=== PATIENT | female | born 1940 | race Caucasian/White ===

== ENCOUNTER 2020-01-30 16:37 | Inpatient (IN) | payer OTHER ==
[~2020-01-30] VITALS: Ht 144.8 cm; Wt 47.6 kg
[2020-01-30] MEDS ORDERED: LIPITOR20 MG (16:45)
[2020-01-30] MEDS ORDERED: LEVOXYL50 MCG (16:45)
== END 2020-02-05 14:04 | disposition home health service (06) | DRG 563 ==
LOC: ER 16:37 → SURG 01-31 17:29 → SURH 02-04 15:26
PROVIDERS: ADMIT Internal Medicine; ATTEND Internal Medicine
PROC: 30233N1 Transfusion of Nonautologous Red Blood Cells into Peripheral Vein, Percutaneous Approach (ICD-10-PCS; principal; 2020-02-02)
DX: S82.141A Displaced bicondylar fracture of right tibia, initial encounter for closed fracture (principal); F23 Brief psychotic disorder; I10 Essential (primary) hypertension; E03.9 Hypothyroidism, unspecified; S80.821A Blister (nonthermal), right lower leg, initial encounter; Z20.828 Contact with and (suspected) exposure to other viral communicable diseases; M81.8 Other osteoporosis without current pathological fracture; W18.39XA Other fall on same level, initial encounter; Z53.8 Procedure and treatment not carried out for other reasons

== ENCOUNTER 2020-03-16 08:51 | Outpatient (CLI) | payer OTHER ==
[~2020-03-16 08:51] MED LIST: LEVOXYL50 MCG; LIPITOR20 MG
== END 2020-03-16 09:30 | disposition home or self-care (01) ==
LOC: WOUND MED 08:51
PROVIDERS: ATTEND Specialist
DX: L89.512 Pressure ulcer of right ankle, stage 2 (principal)
CPT/HCPCS: 11042; G0463; A4554; A4930; A6216

== ENCOUNTER 2020-04-08 08:14 | Outpatient (CLI) | payer OTHER | END 2020-04-08 09:00 | disposition home or self-care (01) | LOC: WOUND MED 08:14 | PROVIDERS: ATTEND Specialist | DX: L89.512 Pressure ulcer of right ankle, stage 2 (principal) | CPT/HCPCS: 11042; A4554; A4930; A6212; A6216; A6219 ==

== ENCOUNTER 2020-05-31 08:58 | Outpatient (CLI) | payer OTHER | END 2020-05-31 10:00 | disposition home or self-care (01) | LOC: WOUND MED 08:58 | PROVIDERS: ATTEND Specialist | DX: L97.422 Non-pressure chronic ulcer of left heel and midfoot with fat layer exposed (principal) | CPT/HCPCS: 11042; G0463; A4554; A4930; A6212; A6216; A6219 ==

== ENCOUNTER 2020-06-07 08:04 | Outpatient (CLI) | payer OTHER | END 2020-06-07 09:22 | disposition home or self-care (01) | LOC: WOUND MED 08:04 | PROVIDERS: ATTEND Specialist | DX: L97.522 Non-pressure chronic ulcer of other part of left foot with fat layer exposed (principal) | CPT/HCPCS: 11042; A4554; A4930; A6212; A6216; A6220 ==

== ENCOUNTER 2020-06-14 08:16 | Outpatient (CLI) | payer OTHER | END 2020-06-14 10:00 | disposition home or self-care (01) | LOC: WOUND MED 08:16 | PROVIDERS: ATTEND Specialist | DX: R60.0 Localized edema (principal); L97.512 Non-pressure chronic ulcer of other part of right foot with fat layer exposed | CPT/HCPCS: A4554; A4930; A6216; G0463 ==